=== PATIENT | female | born 1930 | race Caucasian/White ===

== ENCOUNTER 2016-08-09 14:41 | Inpatient (IN) | payer MEDICARE, BC ==
[~2016-08-09] VITALS: Ht 152.4 cm; Wt 60.0 kg
--- NOTE | ~2016-08-09 | HEMODYNAMI ---
PATIENT:SALVADOR CARRILLO MEDICAL RECORD: [id number] : 34 [id number] ADMISSION DATE: 08/09/16 Generatedon:08/10/201615:53 Patient name: SALVADOR CARRILLO Patient #: [id number] SSN: : 1930 Date of study: 08/10/2016 Page: Of Hemodynamic Procedure Report Patient Data Patient Demographics Procedure consent was obtained First Name: SALVADOR Gender: Female Last Name: GERARDO : 1930 Middle Initial: [place] Age: 86 year(s) Patient #: [id number] Race: Unknown Additional ID: [id number] Contact details [address]: [address] [place] [address] State: [place] City: [place] Zip code: [address] Past Medical History Allergies Allergen Reaction Date Comments Reported Other 08/10/2016 AMOXICILLIN, CALVULANIC allergy ACID, LEROFLOXACIN,PROMETHAZINE. Admission Admission Data Admission Date: 08/09/2016 Admission Time: 16:39 Room #: D.2115 Lab Results Lab Result Date: 08/10/2016 Lab Result Time: 15:20 Biochemistry Name Units Result Min Max BUN mg/dl 47 --(----)-* 7 18 Creatinine mg/dl 2.3 --(----)-* 0.6 1.3 CBC Name Units Result Min Max Hematocrit % 32.4 *-(----)-- 42 54 Hemoglobin g/dl 10.6 *-(----)-- 13.5 17.5 Procedure Procedure Types Cath Procedure Diagnostic Procedure PPM/ICD PPM Dual Implant Miscellaneous Procedures Moderate Sedation up to 45 minutes Procedure Description Procedure Date Procedure Date: 08/10/2016 Procedure Start Time: 15:18 Procedure End Time: 15:52 Procedure Staff Name Function Kaden Jennings MD Performing Physician Zelalem Hollingsworth MD Assisting physician Ton Stovall RT Scrub Xavi Guerra RT Monitor Mal Denise RN Nurse Procedure Data Cath Procedure Fluoroscopy Diagnostic fluoroscopy Total fluoroscopy Time: 2.6 time: 2.6 min min Diagnostic fluoroscopy Total fluoroscopy dose: dose: 35.85 mGy 35.85 mGy Contrast Material Contrast Material Type Amount (ml) Isovue 300 0 Estimated blood loss: 5 ml Procedure Complications No complications Procedure Medications Medication Administration Route Dosage Oxygen NC 2 l/min Lidocaine 1% with added to field 20 ml Epi Bupivacaine 0.5% ml 0.9% NaCl I.V. 50 ml/hr Vancomycin I.V.P.B 1 g Vancomycin Topical 1 g Irrigation Versed I.V. 1 mg Fentanyl I.V. 50 mcg Versed I.V. 1 mg Fentanyl I.V. 50 mcg Fentanyl I.V. 50 mcg Hemodynamics Rest Heart Rate: 34 (bpm) Snapshots Pre Cath Intra NCS Post Cath Vital Signs Time Heart Resp SPO2 NIBP (mmHg) Rhythm Pain Sedation Rate (ipm) (%) Status Level (bpm) 15:08:59 37 15 87 Measuring SB 0 (11) 10(A) , No pain 15:10:23 33 17 90 Time SB 0 (11) 10(A) Exceeded , No pain 15:12:56 32 18 99 167/64(127) SB 0 (11) 10(A) , No pain 15:17:55 33 10 100 154/62(0) SB 0 (11) 10(A) , No pain 15:22:56 151 18 97 169/73(120) SB 0 (11) 10(A) , No pain 15:27:55 71 19 98 Measuring SB 0 (11) 10(A) , No pain 15:28:42 39 19 96 138/66(125) SB 0 (11) 10(A) , No pain 15:33:42 44 13 99 Measuring SB 0 (11) 10(A) , No pain 15:34:39 45 15 97 212/75(141) SB 0 (11) 10(A) , No pain 15:39:26 78 16 99 209/90(182) Paced 0 (11) 10(A) , No pain 15:44:21 74 14 98 199/88(143) Paced 0 (11) 10(A) , No pain 15:49:11 68 16 96 214/85(148) Paced 0 (11) 10(A) , No pain Medications Time Medication Route Dose Verified Delivered Reason Notes Effectiv eness by by 14:49:59 Lidocaine added 20 ml Kaden Alfonso for local 1% with Epi to [facility] anesthetic field MD GARCIA 14:49:59 Oxygen NC 2 Kaden Alfonso used for l/min [facility] procedure MD GARCIA 15:02:55 Bupivacaine ml Kaden Alfonso 0.5% [facility] GARCIA MD 15:06:35 0.9% NaCl I.V. 50 Kaden Alfonso Per ml/hr [facility] physician MD GARCIA 15:06:45 Vancomycin I.V.P.B 1 g Kaden Resendez used for [facility] software engineer 15:06:57 Vancomycin Topical 1 g Kaden Valenciaie used for Irrigation [facility] software engineer 15:16:39 Versed I.V. 1 mg Kaden Valenciaie for [facility] RN sedation 15:16:46 Fentanyl I.V. 50 Kaden Valenciaie for mcg [facility] RN sedation 15:20:13 Versed I.V. 1 mg Kaden Valenciaie for [facility] RN sedation 15:20:18 Fentanyl I.V. 50 Kaden Valenciaie for mcg [facility] RN sedation 15:26:13 Fentanyl I.V. 50 Kaden Valenciaie for [facility] RN sedation Procedure Log Time Note 14:26:17 Ton Stovall RT(R) sent for patient. Start room use. 14:26:18 Time tracking: Regular hours 14:26:35 Plan of Care:Hemodynamics will remain stable., Cardiac rhythm will remain stable., Comfort level will be maintained., Respiratory function will remain adequate., Patient/ family verbilizes understanding of procedure., Procedure tolerated without complication., Recovers from procedure without complications.. 14:49:59 Lidocaine 1% with Epi 20 ml added to field was administered by Kaden Jennings MD; for local anesthetic; 14:49:59 Oxygen 2 l/min NC was administered by Kaden Jennings MD; used for procedure; 14:50:46 Patient received from Med II to CCL 3 Alert and oriented. Tansferred to table in Supine position. 14:50:47 Warm blankets applied, and victor manuel hugger turned on for patient comfort. 14:50:48 Correct patient and procedure confirmed by team. 14:50:50 Signed procedure consent form obtained from patient. 14:50:51 ECG and BP/O2 sat monitors applied to patient. 14:50:54 Pre-procedure instructions explained to patient. 14:50:55 Pre-op teaching completed and patient verbalized understanding. 14:50:56 Family in waiting room. 14:50:58 Patient NPO since Midnight. 15:02:55 Bupivacaine 0.5% ml was administered by Kaden Jennings MD; ; 15:06:35 0.9% NaCl 50 ml/hr I.V. was administered by Kaden Jennings MD; Per physician; 15:06:45 Vancomycin 1 g I.V.P.B was administered by Mal Denise RN; used for procedure; 15:06:57 Vancomycin Irrigation 1 g Topical was administered by Mal Denise RN; used for procedure; 15:07:10 Vital chart was started 15:08:44 Baseline sample Acquired. 15:08:47 Rhythm: 2nd degree heart block 15:08:53 Full Disclosure recording started 15:10:22 Patient allergic to Other allergyAMOXICILLIN, CALVULANIC ACID, LEROFLOXACIN,PROMETHAZINE. 15:10:24 Is the patient allergic to Iodine/contrast media? No. 15:10:26 Is patient on blood thinner?No 15:10:27 Patient diabetic? No. 15:10:30 Previous problem with sedation/anesthesia? No ? 15:10:32 Snore? Yes 15:10:33 Sleep apnea? No 15:10:35 Deviated septum? No 15:10:35 Opens mouth fully? Yes 15:10:36 Sticks out tongue? Yes 15:10:38 Airway obstruction? No ? 15:10:41 Dentures? Yes IN TIGHT 15:10:45 Patient pain scale 0/10 ?. 15:10:55 IV patent on arrival in right hand with 0.9% NaCl at [facility]. 15:11:48 Lab Result : BUN 47 mg/dl 15:11:48 Lab Result : Hemoglobin 10.6 g/dl 15:11:48 Lab Result : Creatinine 2.3 mg/dl 15:11:48 Lab Result : Hematocrit 32.4 % 15:11:50 Lab results completed and on chart. 15:11:58 Left chest area was prepped with chlora-prep and draped in sterile fashion 15:12:00 Alarms reviewed by Anthony Quijano 15:12:00 Sharps counted by scrub and verified by R.N. 15:12:07 Use device set Pacemaker Set 15:12:21 Medtronic sales representative electric service WILL DIANA present for procedure. 15:14:58 Pre sharps counted by scrub and verified by RN: Sutures: 14 Sponges: 5 Stick needles: 2 Skin needles: 2 Blade: 1 Cautery: 1 15:15:17 Grounding pad site Left thigh. 15:15:23 Physician arrived 15:15:23 --------ALL STOP TIME OUT------ 15:15:24 Final Timeout: patient, procedure, and site verified with staff and physician. All members of the team are in agreement. 15:15:32 Left chest site verified by team. 15:15:40 Physical assessment completed. ASA score P 2 - A patient with mild systemic disease as per Kaden Jennings MD. 15:15:42 Sedation plan: IV Moderate Sedation Versed, Fentanyl 15:15:57 2.0 Ticron Multipack opened to sterile field. 15:15:57 3.0 Vicryl Multipack [id number] opened to sterile field. 15:16:02 5.0 Monocryl PS2 [id number] opened to sterile field. 15:16:03 Mepilex Dressing opened to sterile field. 15:16:19 Medtronic Adapta PPM Dual Generator opened to sterile field. 15:16:39 Versed 1 mg I.V. was administered by Mal Denise RN; for sedation; 15:16:46 Fentanyl 50 mcg I.V. was administered by Mal Denise RN; for sedation; 15:18:45 Procedure started. 15:19:22 Grounding pad site free from injury. 15:19:28 Lidocaine 1% w/epi and Bupivacaine 0.5% to left subclavicular area by Zelalem Hollingsworth MD. 15:20:13 Versed 1 mg I.V. was administered by Mal Denise RN; for sedation; 15:20:18 Fentanyl 50 mcg I.V. was administered by Mal Denise RN; for sedation; 15:21:15 Immobilizer Sling Medium opened to sterile field. 15:21:29 Incision made to left subclavicular area. 15:26:13 Fentanyl 50 mcg I.V. was administered by Mal Denise RN; for sedation; 15:26:18 Medtronic 4574-45 PPM Lead opened to sterile field. 15:26:19 Medtronic 4074-52 PPM Lead opened to sterile field. 15:27:37 Generator pocket made/opened. 15:27:41 Left subclavian vein accessed with 7Fr Safe Sheath. 15:29:35 Ventricular lead inserted and advanced. 15:29:37 Ventricular lead positioned. 15:32:46 Ventricular lead tested. 15:32:47 Peel-a-way sheath was split and removed. 15:32:55 Left subclavian vein accessed with 7Fr Safe Sheath. 15:32:57 Atrial lead inserted and advanced. 15:32:59 Atrial lead positioned. 15:33:01 Atrial lead tested. 15:33:27 Peel-a-way sheath was split and removed. 15:36:43 Atrial lead attachment was completed with 2-0 ticron. 15:36:50 Ventricular lead attachment was completed with 2-0 ticron. 15:39:56 PPM Dual was attached to lead(s) and inserted into pocket. 15:40:02 Device pocket was irrigated with Vancomycin. 15:40:08 Generator was sutured in place with 2-0 ticron. 15:42:39 Subcutaneous closure was completed with 3-0 vicryl. 15:45:20 Parameters-- Generator: Mode: DDDR. Lower Rate: 60bpm. Upper Rate: 130bpm. 15:45:50 Parameters--Atrial P/R Wave: 1.1mV. Current: 0.4mA; Threshold: 0.3V; Impedence: 472OHMS. 15:46:14 Parameters--Ventricular P/R Wave: 4.9mV. Current: 1.0mA; Threshold: 0.8V; Impedence: 808OHMS. 15:46:29 Skin closure was completed with 5-0 monocryl. 15:47:45 Procedure ended.(Physican Out) 15:47:54 Lt Chest incision was dressed with Mepilex dressing. 15:48:53 Fluoroscopy time 02.60 minutes. 15:49:27 Fluoroscopy dose: 35.85 mGy 15:49:27 Flurop Dose total: 35.85 15:49:30 Contrast amount:Isovue 300 0ml. 15:49:31 Sharps counted by scrub and verified by R.N. 15:49:43 Post sharps counted by scrub and verified by RN: Sutures: 14 Sponges: 5 Stick needles: 2 Skin needles: 2 Blade: 1 Cautery: 1 15:49:49 Insertion/operative site no bleeding no hematoma. 15:50:02 Post-op/insertion site Left Chest area dressed using a Mepilex dressing. 15:50:16 Post Chest area:stable, soft, clean and dry 15:50:19 Post Procedure Pulses reassessed and unchanged 15:50:22 Post-procedure physical assessment completed. ASA score P 2 - A patient with mild systemic disease as per Kaden Jennings MD. 15:50:25 Post procedure rhythm: paced 15:50:27 Estimated blood loss: 5 ml 15:50:35 Post procedure instruction explained to patient.Patient verbalizes understanding. 15:50:35 Patient needs reinforcement of post procedure teaching. 15:51:19 Procedure type changed to Cath procedure, Diagnostic procedure, PPM/ICD, PPM Dual Implant, Miscellaneous Procedures, Moderate Sedation up to 45 minutes 15:51:49 Procedure and supply charges have been captured, reviewed, submitted and are correct. 15:51:52 Procedure Complication : No complications 15:52:22 Vital chart was stopped 15:52:22 See physician's report for complete and final results. 15:52:24 Report given to PCU. 15:52:26 Patient transfered to PCU with Stretcher. 15:52:29 Procedure ended. 15:52:29 Full Disclosure recording stopped 15:52:34 End room use (Document Last) Device Usage Item Name Manufacture Quantity Catalog Hospital Part Current Minimal Lot# / Number Charge Number Stock Stock Serial# Code 2.0 Ticron Ethicon 0 [id number] 66202 396899 5 Multipack 3.0 Vicryl Ethicon 1 [id number] 012324 865405 487245 5 Multipack [id number] 5.0 Ethicon 1 [id number] 438933 710536 084547 5 Monocryl PS2 Y495G Mepilex Cardinal 1 157814 960692 899235 969091 5 [facility] Medtronic Medtronic 1 [id number] 661133 5 SN Adapta PPM [id number] Dual EXP Generator 2017-11-30 Immobilizer Cardinal 1 [id number] [id number] 726931 765160 5 [facility] Medtronic Medtronic 1 4574-45 166511 857587 5 SN 4574-45 PPM [id number] Lead EXP 2018-03-28 Medtronic Medtronic 1 4074-52 268095 149832 5 SN 4074-52 PPM [id number] Lead EXP 2018-04-20 Signature Audit [place] Stage Time Signature Unsigned Intra-Procedure 08/10/2016 Xavi Guerra 3:52:55 PM RT(R) Signatures Monitor : Xavi Guerra RT Signature : Date : Time : [address] [address]
[~2016-08-09 14:41] MED LIST: CENTRUM COMPLE1 EACH PO; HCTZ25 MG PO; HEMOCYTE PLUS C1 CAP PO; HYDROCODONE-APA1 TAB PO; NORVASC5 MG PO; PRILOSEC20 MG PO; PROAIR HFA8.5 GM INH; SYMBICORT 80-10.2 GM INH; TRIBENZOR 40-11 EAC1 PO; ZESTRIL40 MG PO; ZYRTEC10 MG PO
[2016-08-09 15:38] LABS: BASOPHILS 0.3 % (0-2); EOSINOPHILS 1.5 % (0-7); HEMATOCRIT 32.4 % (36.0-48.0); HEMOGLOBIN 10.6 g/dL (12-16); IMMATURE GRANULOCYTES 0.2 % (0-5); LYMPHOCYTES 10.4 % (15-50); MCH 30.8 pg (26.0-34.0); MCHC 32.7 g/dL (31.0-37.0); MCV 94.2 fL (80.0-100.0); MEAN PLATELET VOLUME 11.1 fL (7.4-10.4); MONOCYTES 10.4 % (2-11); NEUTROPHILS 77.2 % (40-80); RBC 3.44 10x6/uL (4.00-5.40)
[2016-08-09 15:39] LABS: PLATELET COUNT 134 10x3/uL (130-400)
[2016-08-09 16:13] LABS: ALBUMIN 3.7 g/dL (3.4-5.0); ALKALINE PHOSPHATASE 96 U/L (46-116); ALT (SGPT) 87 U/L (10-68); BILIRUBIN - TOTAL 0.31 mg/dL (0.2-1.3); CALC OSMOLALITY 298 mosm/kg (275-300); CALCIUM 10.2 mg/dL (8.5-10.1); CARBON DIOXIDE 28.7 mmol/L (21.0-32.0); CHLORIDE - SERUM 107 mmol/L (98-107); CREATININE - SERUM 2.3 mg/dL (0.6-1.3); GLUCOSE 93 mg/dL (74-106); SODIUM 144 mmol/L (136-145); UREA NITROGEN 47 mg/dL (7-18); eGFR NON AFRICAN AMERICAN 21 mL/min (90-120)
[2016-08-09 16:28] LABS: CKMB 2.4 U/L (0.0-3.6); CREATINE KINASE 123 UL (21-215); MAGNESIUM - SERUM 1.9 mg/dL (1.8-2.4); PRO BNP 1186 pg/mL (0-450)
[2016-08-09 16:33] LABS: TROPONIN-I < 0.017 ng/mL (0.000-0.060)
--- NOTE | 2016-08-09 17:51 | NUR ---
TRANSFER FROM ER BY W/C. ANNALISAINTED TO ROOM. CALL LIGHT IN REACH. WILL CONT. PLAN OF CARE.
[2016-08-09 18:08] VITALS: BP 131/62
[2016-08-09 18:38] VITALS: BP 131/62; Ht 152.4 cm; Wt 60.0 kg
[2016-08-09 20:44] VITALS: BP 180/52
--- NOTE | 2016-08-10 00:14 | NUR ---
PT RESTING WELL, NO CHANGES NOTED IN ASSESSMENT. NO NEEDS VOICED. CALL LIGHT WITHIN REACH. WILL CONT TO MONITOR.
[2016-08-10 03:47] VITALS: BP 203/55
[2016-08-10 08:41] VITALS: BP 199/53
--- NOTE | 2016-08-10 09:09 | NUR ---
NPO AFTER BREAKFAST FOR PACEMAKER THIS AFTERNOON. CONSENTS SIGNED. MONITOR SHOWS SR BRADYCARDIA @ 50.
--- NOTE | 2016-08-10 11:55 | NUR ---
NPO FOR PACEMAKER. CONSENTS SIGNED.
--- NOTE | 2016-08-10 12:17 | NUR ---
IV ACCESS-22 GAUGE INSERTED IN RIGHT HAND FOR ACCESS. GENARO HERNANDEZ RN
--- NOTE | 2016-08-10 12:52 | HP ---
PATIENT: SALVADOR CARRILLO MEDICAL RECORD: [id number] ACCOUNT: [id number] LOCATION:. D.2115 : 34 ADMISSION DATE: 08/09/16 HISTORY AND PHYSICAL EXAMINATION HISTORY OF PRESENT ILLNESS: An 86-year-old female with known history of coronary artery disease. She has a history of hypertension and peripheral neuropathy, actually stays fairly healthy, able to work in the yard and takes care of all ADLs, was admitted with dizziness, near syncope, found to have high degree AV block with Mobitz I and II, she is on no AV slowing agents. We are asked to see her concerning her cardiovascular status. PAST MEDICAL HISTORY: Includes: 1. History of obstructive pulmonary disease. 2. Hypertension. 3. Peripheral neuropathy. 4. Gastroesophageal reflux disease. 5. Osteoarthritis. MEDICATIONS: Include Prilosec 40 mg p.o. b.i.d., Symbicort 80/4.5 two puffs b.i.d., [employer] 10/325 q. 4 p.r.n., Tribenzor 1 p.o. daily, albuterol 1 puff q. 4 p.r.n. and Zyrtec 10 daily. ALLERGIES: PHENERGAN, LEVAQUIN, AMOXICILLIN AND AUGMENTIN. SOCIAL HISTORY: Lives here in [place]. She is able to take care of her ADLs. No set exercise program secondary to neuropathy, but does stay quite active. REVIEW OF SYSTEMS: The patient reports easy bruising but reports no swollen glands. The patient reports no fever, no night sweats, no significant weight gain, no significant weight loss. No significant exercise tolerance. The patient reports no dry eyes, no irritation, no vision change. Patient reports no difficulty hearing and no ear pain. Patient reports no frequent nose bleeds or nose and sinus problems. Patient reports on arm pain on exertion. No shortness of breath while lying down. No history of heart murmur. Patient reports no cough, no wheezing or coughing up blood. Patient reports no abdominal pain, no vomiting. Normal appetite. No diarrhea and not vomiting blood. No nausea and no constipation. Patient reports no incontinence. No difficulty urinating. No hematuria. No increased frequency. Patient reports no muscle aches. No weakness, no arthralgias, no back pain. No swelling of the extremities. Patient reports no abnormal mole, no jaundice, no rashes. Reports no loss of consciousness. No weakness and no numbness. No seizures, dizziness, or headaches. The patient reports no depression, no sleep disturbance, feeling safe in a relationship and no alcohol abuse. Patient reports on fatigue. Reports no runny nose or sinus pressure. No itching, no hives, and no frequent sneezing. PHYSICAL EXAMINATION: GENERAL: Pleasant female, in no acute distress, appears stated age. VITAL SIGNS: Blood pressure 190/52, pulse 40 and regular. HEENT: Normocephalic and atraumatic. NECK: No JVD or bruit. HEART: Regular, bradycardic. LUNGS: Good air excursion. HISTORY AND PHYSICAL [id number] SALVADOR CARRILLO ABDOMEN: Soft and nontender. EXTREMITIES: Pulses 2+. There is no edema. DIAGNOSTIC DATA: ECG shows second-degree AV block. IMPRESSION: We will plan for a permanent pacemaker placement in the near future. TRANSINT:[id number] Voice Confirmation ID: [id number] DOCUMENT ID: [id number] ELISEO PEREZ MD at 1252 CC: [id number] DICTATION DATE: 08/10/16 0807 GEODETIC COMPUTATOR: 08/10/16 1241 ADM IN [facility] [address] [place] [address]
[2016-08-10 12:54] VITALS: BP 197/83
--- NOTE | 2016-08-10 14:04 | NUR ---
IV RESTARTED TO RIGHT WRIST BY GENARO JAMESON. LINE IS PATENT. LEFT AC DCD.
--- NOTE | 2016-08-10 14:49 | NUR ---
LEAVING FOR BRICKLAYER SUPERVISOR BY BED.
--- NOTE | 2016-08-10 16:21 | NUR ---
BACK FROM CHANNEL REBUILDER. VS WNL. LEFT CHEST DRSG CLEAN AND DRY. LEFT ARM IN SLING. WILL CONT. PLAN OF CARE.
[2016-08-11] VITALS: BP 183/74
[2016-08-11 04:00] VITALS: BP 195/72
[2016-08-11 08:12] VITALS: BP 170/75
--- NOTE | 2016-08-11 10:13 | NUR ---
METRONICS AT BS INTEROGATING PACEMAKER.
--- NOTE | 2016-08-11 11:30 | NUR ---
IV AND TELEMETRY DCD. DC PLANS GIVEN. UNDERSTANDING VOICED. ESCORTED TO CAR BY W/C.
--- NOTE | 2016-08-11 12:54 | NUR ---
Patient Name: SALVADOR CARRILLO Admission Status: ER Accout number: [id number] Admission Date: 08-09-2016 : 1930 Admission Diagnosis:SICK SINUS SYNDROME Attending: DIEGO Current LOS: 2 Anticipated DC Date: 08-11-2016 Planned Disposition: Hospice Home Primary Insurance: MEDICARE A & B LATE ENTRY: Discharge Planning Comments: CM RECEIVED DISCHARGE ORDER, ATTEMPTED TO MEET WITH PT FOR INITIAL ASSESSMENT OF DISCHARGE NEEDS. PT WAS NOT IN SHOWER AT APPROXIMATELY 1110 HOURS. CM TO ATTEMPT ASSESSMENT OF PT AT A LATER TIME. CM ATTEMPTED TO MEET WITH PT FOR INITIAL ASSESSMENT OF DISCHARGE NEEDS AT APPROXIMATELY 1130 HOURS, PT NOT IN ROOM. CM ATTEMPTED TO MEET WITH PT AT APPROXIMATELY 1255 HOURS, PT HAD BEEN DISCHARGED HOME AND ROOM EMPTY. Recordist Chief: Jed Baxter
--- NOTE | 2016-08-11 14:34 | OP ---
PATIENT NAME: SALVADOR CARRILLO MEDICAL RECORD: [id number] :34 LOCATION:D.M2 D.2115 ADMISSION DATE:08/09/16 SURGEON: ZELALEM WEBER MD DATE OF OPERATION: 08/10/2016 PREOPERATIVE DIAGNOSES: 1. Sick sinus syndrome. 2. Symptomatic bradycardia. 3. Chronic kidney disease. 4. Anemia of chronic disease. POSTOPERATIVE DIAGNOSES: 1. Sick sinus syndrome. 2. Symptomatic bradycardia. 3. Chronic kidney disease. 4. Anemia of chronic disease. PROCEDURES: 1. Left subclavian vein dual lumen pacemaker placement. 2. Fluoroscopic interpretation. SURGEON: Zelalem Weber MD COSURGEON: Kaden Jennings MD REPORT OF THE OPERATION: The patient's left chest was prepped and draped in sterile fashion. A 25 mL of 1% lidocaine with epinephrine were infused into the surrounding tissues. A skin incision was made on the superior lateral aspect of left chest. A subcutaneous pouch was made over the pectoral fascia. A needle was used to cannulate the left subclavian vein on 2 separate sticks and guidewires were advanced with ease. Fluoro was used to note that the wires were in good position in the venous system. The dilator trocar devices were placed over the wire And the wires and dilators were removed. The 2 leads were inserted through the trocars and at this point, Dr. Jennings positioned the leads in the heart and once they were noted to be functioning appropriately, then the trocars were removed. The leads were sutured into place with 0 Ti-Cron. The leads were then affixed to the patient's pacemaker. Pacemaker and leads were placed into the subcutaneous pouch and sutured down with a single 0 Ti-Cron. The pouch was then irrigated out with antibiotic solution. The subcutaneous tissues were then reapproximated with interrupted 3-0 Vicryls and the skin was closed with running subcutaneous 5-0 Monocryl. COMPLICATIONS: None. CONDITION: Stable. ANESTHESIA: Local MAC. BLOOD LOSS: Minimal. TRANSINT:[id number] Voice Confirmation ID: [id number] DOCUMENT ID: [id number] OPERATIVE REPORT [id number] SALVADOR CARRILLO ZELALEM WEBER MD at 1434 CC: KADEN PEREZ MD [id number] DICTATION DATE: 08/10/16 1554 SPINNING AND WINDING SUPERVISOR: 08/11/16 0411 DIS IN 08/11/16 [facility] [address] [place] [id number]
--- NOTE | 2016-08-12 10:39 | OP ---
PATIENT NAME: SALVADOR LIAO MEDICAL RECORD: [id number] :34 LOCATION:D.M2 D.2115 ADMISSION DATE:08/09/16 SURGEON: ELISEO PEREZ MD DATE OF OPERATION: 08/10/2016 PROCEDURE: Lead portion of permanent pacemaker placement. INDICATIONS: Complete heart block. SURGEON: Zelalem Hollingsworth MD. DESCRIPTION OF PROCEDURE: After the left subclavian was cannulated via modified Seldinger technique via Dr. Hollingsworth, first under fluoroscopic guidance, I placed the RV lead in the RV apex without difficulty. Next, again a fluoroscopic guidance, I placed the right atrial lead in right atrial appendage without difficulty. The leads were attached to appropriate poles of the generator and the pocket was closed via Dr. Hollingsworth. IMPRESSION: Successful lead portion of permanent pacemaker placement on Salvador Liao. COMPLICATIONS: None. ESTIMATED BLOOD LOSS: Minimal. DISPOSITION: To the floor, stable. TRANSINT:[id number] Voice Confirmation ID: [id number] DOCUMENT ID: [id number] ELISEO PEREZ MD at 1039 CC: [id number] DICTATION DATE: 08/10/16 1542 UNDERCOAT SPRAYER: 08/11/16 0356 DIS IN 08/11/[address] [facility] [address] [place] [address]
--- NOTE | 2016-08-12 10:40 | DS ---
PATIENT:SALVADOR CARRILLO :[birth year] MEDICAL RECORD: [id number] DISCHARGE SUMMARY ADMISSION DATE: 08/09/16 DISCHARGE DATE: 08/11/16 PROBLEM LIST: 1. Complete heart block with near syncope. 2. Hypertension. BRIEF HISTORY AND HOSPITAL COURSE: Admitted with near syncope, dyspnea, found to be in complete heart block, underwent permanent pacemaker placement without difficulty. She immediately improved and was discharged home in good condition. MEDICATIONS: Same preprocedure. She will follow up in the office in 2 weeks. TRANSINT:[id number] Voice Confirmation ID: [id number] DOCUMENT ID: [id number] ELISEO PEREZ MD at 1040 CC: [id number] DICTATION DATE: 08/11/16818 AREA LOSS PREVENTION MANAGER: 08/12/16 0535 DIS IN 08/11/16 [id number] [place] [address]
== END 2016-08-11 12:47 | disposition home or self-care (01) | DRG 244 ==
LOC: D.ER 14:41 → D.M2 16:39
PROVIDERS: Emergency Medicine; ADMIT Internal Medicine Interventional Cardiology
PROC: 02H63JZ Insertion of Pacemaker Lead into Right Atrium, Percutaneous Approach (ICD-10-PCS; 2016-08-10)
PROC: 02HK3JZ Insertion of Pacemaker Lead into Right Ventricle, Percutaneous Approach (ICD-10-PCS; 2016-08-10)
PROC: 0JH606Z Insertion of Pacemaker, Dual Chamber into Chest Subcutaneous Tissue and Fascia, Open Approach (ICD-10-PCS; principal; 2016-08-10 14:26)
DX: I49.5 Sick sinus syndrome (principal); I44.1 Atrioventricular block, second degree; D63.8 Anemia in other chronic diseases classified elsewhere; I12.9 Hypertensive chronic kidney disease with stage 1 through stage 4 chronic kidney disease, or unspecified chronic kidney disease; N18.9 Chronic kidney disease, unspecified; J44.9 Chronic obstructive pulmonary disease, unspecified; K21.9 Gastro-esophageal reflux disease without esophagitis; G62.9 Polyneuropathy, unspecified; I25.10 Atherosclerotic heart disease of native coronary artery without angina pectoris

== ENCOUNTER → 2016-09-11 09:33 | Outpatient (CLI) | payer MEDICARE, BC ==
[2016-08-09 18:38] VITALS: BMI 25.4
== END | disposition home or self-care (01) ==
LOC: D.US 09:33
DX: C88.0 Waldenstrom macroglobulinemia (principal); D64.9 Anemia, unspecified; E88.09 Other disorders of plasma-protein metabolism, not elsewhere classified

== ENCOUNTER 2017-11-02 17:25 | Inpatient (IN) | payer MEDICARE, BC ==
[~2017-11-02] VITALS: Ht 152.4 cm; Wt 55.7 kg
[2017-11-02 18:02] LABS: BASOPHILS 0.2 % (0-2); HEMATOCRIT 31.9 % (36.0-48.0); HEMOGLOBIN 10.8 g/dL (12-16); IMMATURE GRANULOCYTES 0.1 % (0-5); LYMPHOCYTES 6.7 % (15-50); MCH 30.3 pg (26.0-34.0); MCHC 33.9 g/dL (31.0-37.0); MCV 89.4 fL (80.0-100.0); MEAN PLATELET VOLUME 9.9 fL (7.4-10.4); RBC 3.57 10x6/uL (4.00-5.40); WBC 10.1 10x3/uL (4.8-10.8)
[2017-11-02 18:11] LABS: ALBUMIN 3.4 g/dL (3.4-5.0); ALKALINE PHOSPHATASE 91 U/L (46-116); ALT (SGPT) 17 U/L (10-68); BILIRUBIN - TOTAL 0.32 mg/dL (0.2-1.3); CALC OSMOLALITY 289 mosm/kg (275-300); CALCIUM 9.7 mg/dL (8.5-10.1); CARBON DIOXIDE 25.8 mmol/L (21.0-32.0); CHLORIDE - SERUM 104 mmol/L (98-107); CREATININE - SERUM 3.1 mg/dL (0.6-1.3); GLUCOSE 99 mg/dL (74-106); POTASSIUM - SERUM 3.3 mmol/L (3.5-5.1); PROTEIN - SERUM 6.7 g/dL (6.4-8.2); SODIUM 141 mmol/L (136-145); UREA NITROGEN 38 mg/dL (7-18); eGFR NON AFRICAN AMERICAN 15 mL/min (90-120)
[2017-11-02 18:18] LABS: PLATELET COUNT 168 10x3/uL (130-400)
[2017-11-02 18:22] LABS: CKMB 1.2 U/L (0.0-3.6); CREATINE KINASE 58 UL (21-215); PRO BNP 2784 pg/mL (0-450); THYROID STIMULATING HORMONE 2.37 uIU/mL (0.36-3.74); TROPONIN-I < 0.017 ng/mL (0.000-0.060)
[2017-11-02 19:04] VITALS: BP 210/85
[2017-11-02 19:27] LABS: APPEARANCE CLEAR (CLEAR); BILIRUBIN NEGATIVE (NEGATIVE); COLOR YELLOW (YELLOW); GLUCOSE NEGATIVE (NEGATIVE); KETONE NEGATIVE (NEGATIVE); NITRITE NEGATIVE (NEGATIVE); PROTEIN 1+ mg/dL (NEGATIVE); RED CELLS - URINE OCC /hpf (0-5); UROBILINOGEN NORMAL (NORMAL); WHITE CELLS - URINE OCC /hpf (0-5)
[2017-11-02 19:28] LABS: BACTERIA FEW /hpf (NONE SEEN); EPITHELIAL CELLS 0-5 /hpf (0-5)
[2017-11-02 19:35] VITALS: BP 145/124
[2017-11-02 20:27] VITALS: BP 199/85
[2017-11-02] MEDS ORDERED: ZANTAC150 MG PO (22:00)
[2017-11-02 23:43] VITALS: BP 214/81; BMI 25.4
[2017-11-03] VITALS: BP 131/61
[2017-11-03 04:00] VITALS: BP 134/80
[2017-11-03 05:47] LABS: BASOPHILS 0.2 % (0-2); EOSINOPHILS 0.9 % (0-7); HEMATOCRIT 27.5 % (36.0-48.0); HEMOGLOBIN 9.3 g/dL (12-16); IMMATURE GRANULOCYTES 0.2 % (0-5); LYMPHOCYTES 12.4 % (15-50); MCHC 33.8 g/dL (31.0-37.0); MCV 88.7 fL (80.0-100.0); MEAN PLATELET VOLUME 10.3 fL (7.4-10.4); MONOCYTES 12.9 % (2-11); NEUTROPHILS 73.4 % (40-80); PLATELET COUNT 144 10x3/uL (130-400); RDW 13.1 % (11.5-14.5)
[2017-11-03 05:49] LABS: WBC 6.5 10x3/uL (4.8-10.8)
[2017-11-03 05:58] LABS: ANION GAP 13.9 mmol/L (8-16); CALCIUM 9.1 mg/dL (8.5-10.1); CARBON DIOXIDE 25.8 mmol/L (21.0-32.0); POTASSIUM - SERUM 3.7 mmol/L (3.5-5.1)
[2017-11-03 08:09] VITALS: BP 180/80
[2017-11-03 11:28] VITALS: Ht 152.4 cm; Wt 55.7 kg
[2017-11-03 11:46] VITALS: BP 175/82
[2017-11-03 12:51] LABS: % SATURATION 13 % (15-55); IRON 25 ug/dl (35-150); TOTAL IRON BIND CAPACITY 186 ug/dl (260-445); UNSAT IRON BIND CAPACITY 161 ug/dl (150-375)
[2017-11-03 12:52] LABS: T4 THYROXIN - FREE 1.19 ng/dL (0.76-1.46)
[2017-11-03 15:14] VITALS: BP 197/87
[2017-11-03] MEDS ORDERED: OMEPRAZOLE40 MG PO (16:38)
[2017-11-03] MEDS ORDERED: NORVASC5 MG PO (16:39)
[2017-11-03] MEDS ORDERED: EDARBYCLOR 40-1 EAC1 PO (16:39)
[2017-11-03] MEDS ORDERED: MEPROBAMATE200 MG PO (16:40)
[2017-11-03] MEDS ORDERED: DIOVAN HCT 160/1 TA1 PO (16:42)
[2017-11-03 20:01] VITALS: BP 155/42
[2017-11-04] VITALS (7 sets, daily range): BP systolic 140–169; BP diastolic 70–80
[2017-11-04 05:10] LABS: BASOPHILS 0.5 % (0-2); EOSINOPHILS 4.3 % (0-7); HEMATOCRIT 25.3 % (36.0-48.0); HEMOGLOBIN 8.6 g/dL (12-16); IMMATURE GRANULOCYTES 0.2 % (0-5); LYMPHOCYTES 20.6 % (15-50); MCH 30.2 pg (26.0-34.0); MCV 88.8 fL (80.0-100.0); MEAN PLATELET VOLUME 9.3 fL (7.4-10.4); MONOCYTES 13.6 % (2-11); NEUTROPHILS 60.8 % (40-80); RBC 2.85 10x6/uL (4.00-5.40); RDW 13.1 % (11.5-14.5)
[2017-11-04 05:21] LABS: PLATELET COUNT 114 10x3/uL (130-400); WBC 4.2 10x3/uL (4.8-10.8)
[2017-11-04 05:22] LABS: ANION GAP 10.8 mmol/L (8-16); CALCIUM 8.9 mg/dL (8.5-10.1); CARBON DIOXIDE 27.6 mmol/L (21.0-32.0); CREATININE - SERUM 2.9 mg/dL (0.6-1.3); POTASSIUM - SERUM 3.4 mmol/L (3.5-5.1)
[2017-11-05 04:16] VITALS: BP 171/72
[2017-11-05 05:34] LABS: BASOPHILS 0.7 % (0-2); EOSINOPHILS 3.4 % (0-7); HEMATOCRIT 27.1 % (36.0-48.0); HEMOGLOBIN 9.1 g/dL (12-16); IMMATURE GRANULOCYTES 0.2 % (0-5); LYMPHOCYTES 20.9 % (15-50); MCH 30.3 pg (26.0-34.0); MCHC 33.6 g/dL (31.0-37.0); MCV 90.3 fL (80.0-100.0); MEAN PLATELET VOLUME 9.5 fL (7.4-10.4); MONOCYTES 12.2 % (2-11); NEUTROPHILS 62.6 % (40-80); RDW 13.3 % (11.5-14.5); WBC 4.1 10x3/uL (4.8-10.8)
[2017-11-05 05:43] LABS: PLATELET COUNT 142 10x3/uL (130-400)
[2017-11-05 05:59] LABS: ANION GAP 12.6 mmol/L (8-16); CALCIUM 9.2 mg/dL (8.5-10.1); CARBON DIOXIDE 25.6 mmol/L (21.0-32.0); CREATININE - SERUM 2.8 mg/dL (0.6-1.3); POTASSIUM - SERUM 4.2 mmol/L (3.5-5.1)
[2017-11-05 07:49] VITALS: BP 168/74
[2017-11-05 11:03] VITALS: BP 141/71
[2017-11-05] MEDS ORDERED: NORMODYNE / TR100 MG PO (12:49)
[2017-11-06 09:18] LABS: FOLATE (FOLIC ACID) - SERUM >20.0 ng/mL (>3.0)
== END 2017-11-05 14:52 | disposition home or self-care (01) | DRG 304 ==
LOC: D.ER 17:25 → D.M2 19:32 → D.EDHOLD 19:32 → D.M2 19:48
PROVIDERS: Emergency Medicine; Family Medicine; Internal Medicine Nephrology
DX: I16.0 Hypertensive urgency (principal); G93.49 Other encephalopathy; N17.9 Acute kidney failure, unspecified; R41.0 Disorientation, unspecified; H40.9 Unspecified glaucoma; J44.9 Chronic obstructive pulmonary disease, unspecified; K21.9 Gastro-esophageal reflux disease without esophagitis; Z95.0 Presence of cardiac pacemaker; Z87.891 Personal history of nicotine dependence; E87.6 Hypokalemia; D64.9 Anemia, unspecified